=== PATIENT | male | born 1995 | race Caucasian/White ===

== ENCOUNTER 2020-07-10 05:05 | Emergency (ER) | payer MEDICARE, MEDICAID ==
[~2020-07-10] VITALS: Ht 170.2 cm; Wt 63.5 kg
[2020-07-10 05:52] LABS: Urine Bacteria FEW /hpf (None Seen); Urine Blood Negative /uL (Negative); Urine Hyaline Cast FEW /lpf (0 - 2); Urine Mucus FEW (None Seen); Urine Specific Gravity 1.025 (1.001-1.035); Urine Sperm PRESENT /hpf (None Seen); Urine WBC 19 /hpf (0 - 3)
[2020-07-10 06:20] LABS: Alcohol, Urine < 3.0 mg/dL (0-10); Amphetamine Screen, Urine POSITIVE (NEGATIVE); Barbiturate Scree,Urine NEGATIVE (NEGATIVE); Cannabinoid Screen, Urine POSITIVE (NEGATIVE)
[2020-07-10 06:30] LABS: Benzodiazephine Screen, Urine NEGATIVE (NEGATIVE); Cocaine Screen, Urine NEGATIVE (NEGATIVE); Opiate Scree,Urine NEGATIVE (NEGATIVE); Phencyclidine Screen, Urine NEGATIVE (NEGATIVE)
[2020-07-10 08:32] LABS: Basophils # (auto) 0.1 10 ^3/uL (0-0.2); Basophils % (auto) 1.1 % (0.0-2.0); Eosinophils # (auto) 0.3 10 ^3/uL (0-0.8); Eosinophils % (auto) 5.4 % (0.0-7.0); Hematocrit 44.6 % (41.0-53.0); Hemoglobin 15.2 g/dL (13.5-17.5); Lymphocytes # (auto) 1.4 10 ^3/uL (0.4-5.4); Lymphocytes % (auto) 21.6 % (10.0-50.0); Mean Corpuscular Hemoglobin 29.4 pg (28.0-32.0); Mean Corpuscular Volume 86.4 fL (80.0-100.0); Monocytes # (auto) 0.6 10 ^3/uL (0-1.3); Monocytes % (auto) 10.1 % (0.0-12.0); Neutrophils # (auto) 3.9 10 ^3/uL (1.6-8.6); Neutrophils % (auto) 61.8 % (37.0-80.0); Nucleated Red Blood Cells % 0.3 %; Platelet Count (auto) 197 10^3/uL (140-450); Red Blood Cells 5.16 10^6/uL (4.5-5.90); Red Cell Distribution Width 14.5 % (11.8-14.3); White Blood Cell 6.3 10^3/uL (4.4-10.8)
[2020-07-10 08:49] LABS: BUN/Creatinine Ratio 14.8; Calcium 9.4 mg/dL (8.5-10.1); Potassium 4.2 mmol/L (3.5-5.1); Salicylate < 1.7 mg/dL (2.8-20.0)
[2020-07-10 08:50] LABS: Acetaminophen < 2.0 ug/mL (10-30)
[2020-07-10 08:58] LABS: Bilirubin, Total 2.5 mg/dL (0.2-1.0); Total Protein 7.9 g/dL (6.4-8.2)
[2020-07-10 17:30] VITALS: BP 99/50
== END 2020-07-10 17:39 | disposition home or self-care (01) ==
LOC: ER 05:05
DX: R45.851 Suicidal ideations (principal); F41.9 Anxiety disorder, unspecified; N39.0 Urinary tract infection, site not specified; F32.9 Major depressive disorder, single episode, unspecified; F17.210 Nicotine dependence, cigarettes, uncomplicated; F12.10 Cannabis abuse, uncomplicated
CPT/HCPCS: 36415; 80053; 80307; 80329; 81001; 85025